=== PATIENT | male | born 1950 | race Caucasian/White ===

== ENCOUNTER 2019-04-18 13:08 | Inpatient (IN) | payer MEDICAID, OTHER ==
[2019-04-18 13:49] LABS: ADD MAN DIFF? NO
[2019-04-18] MEDS: CEFTRIAXONE 1 GM/50 ML (PMX) 50 ML IVPB (13:50)
[2019-04-18] MEDS: SODIUM CHLORIDE 0.9% 1L BAG IV* (13:50)
[2019-04-18] MEDS: ACETAMINOPHEN 325 MG TAB PO (13:50)
[2019-04-18 13:54] LABS: BASOPHILS % 0.3 % (0.0-2.0); HEMATOCRIT 42.4 % (42.0-52.0); HEMOGLOBIN 14.6 g/dl (14.0-18.0); LYMPHOCYTES # 0.6 10^3/ul (0.8-2.9); LYMPHOCYTES % 7.3 % (15.0-51.0); MEAN CORPUSCULAR HEMOGLOBIN 31.5 pg (29.0-33.0); MEAN CORPUSCULAR HGB CONC 34.4 g/dl (32.0-37.0); MEAN CORPUSCULAR VOLUME 91.6 fl (82.0-101.0); MEAN PLATELET VOLUME 10.1 fl (7.4-10.4); MONOCYTE # 0.9 10^3/ul (0.3-0.9); MONOCYTES % 9.7 % (0.0-11.0); NEUTROPHIL # 7.2 10^3/ul (1.6-7.5); PLATELET COUNT 151 10^3/UL (140-415); RED BLOOD COUNT 4.63 10^6/ul (4.70-6.10); RED CELL DISTRIBUTION WIDTH 12.8 % (11.5-14.5)
[2019-04-18 13:54] LABS: WHITE BLOOD COUNT 8.7 10^3/ul (4.8-10.8)
[2019-04-18 14:09] LABS: ADD UMIC YES; UR ASCORBIC ACID 40 mg/dL (NEGATIVE); UR BILIRUBIN (Dip) NEGATIVE (NEGATIVE); UR BLOOD (Dip) NEGATIVE (NEGATIVE); UR CLARITY CLOUDY (CLEAR); UR COLOR AMBER (YELLOW); UR GLUCOSE (Dip) NEGATIVE (NEGATIVE); UR KETONES (Dip) TRACE mg/dL (NEGATIVE); UR LEUKOCYTE ESTERASE (Dip) NEGATIVE Leu/ul (NEGATIVE); UR MUCUS MODERATE /HPF (NONE SEEN); UR NITRITE (Dip) NEGATIVE (NEGATIVE); UR RBC 28 /HPF (0-5); UR SPECIFIC GRAVITY (Dip) 1.028 (1.003-1.030); UR TOTAL PROTEIN (Dip) 2+ mg/dl (NEGATIVE); UR UROBILINOGEN (Dip) 1+ mg/dL (NEGATIVE); UR WBC 4 /HPF (0-5)
[2019-04-18 14:14] LABS: INR 0.98; PROTIME 13.1 Sec (11.9-14.9)
[2019-04-18 14:15] LABS: PARTIAL THROMBOPLASTIN TIME 30.6 Sec (23.0-35.0)
[2019-04-18 14:16] LABS: ALANINE AMINOTRANSFERASE 52 IU/L (13-69); ALBUMIN 4.2 g/dl (3.3-4.9); ALBUMIN/GLOBULIN RATIO 1.16; ALKALINE PHOSPHATASE 49 IU/L (42-121); ANION GAP 11 (5-13); ASPARTATE AMINO TRANSFERASE 69 IU/L (15-46); BLOOD UREA NITROGEN 22 mg/dl (7-20); CALCIUM 8.7 mg/dl (8.4-10.2); CARBON DIOXIDE 26 mmol/L (21-31); CHLORIDE 99 mmol/L (97-110); CREATININE 1.17 mg/dl (0.61-1.24); Estimated GFR > 60 mL/min (>60); GLUCOSE 155 mg/dl (70-220); POTASSIUM 3.8 mmol/L (3.5-5.1); SODIUM 136 mmol/L (135-144); TOTAL PROTEIN 7.8 g/dl (6.1-8.1)
[2019-04-18 14:27] LABS: TROPONIN-I < 0.012 ng/ml (0.000-0.120)
[2019-04-18] MEDS ORDERED: ONDANSETRON 4 MG INJ IV (16:00)
[2019-04-18 16:20] LABS: LACTIC ACID 1.4 mmol/L (0.5-2.0)
[2019-04-18] MEDS ORDERED: NACL 0.9% 3 ML SYG IV (17:00)
[2019-04-18 17:26] LABS: HEMOGLOBIN A1C 5.6 % (0-5.9)
[2019-04-18 17:27] LABS: C-REACTIVE PROTEIN 6.1 mg/dl (0.0-0.9)
[2019-04-18 17:33] LABS: B-TYPE NATRIURETIC PEPTIDE 35 PG/ML (0-125)
[2019-04-18 17:51] LABS: PROSTATE SPECIFIC ANTIGEN 3.1 ng/ml (0.0-4.0)
[2019-04-18 18:06] LABS: PROCALCITONIN 0.35 ng/mL (0.00-0.10)
[2019-04-18] MEDS: SOD CHLORIDE 0.9% 1,000 ML IV (18:06)
[2019-04-18] MEDS: AZITHROMYCIN 500MG/NS (PMX) 250 ML IVPB (18:06)
[2019-04-18 18:35] LABS: ERYTHROCYTE SEDIMENTATION RATE 60 mm/Hr (0-20)
[2019-04-18] MEDS: IBUPROFEN 600 MG TAB PO (19:07)
[2019-04-18 21:37] LABS: TROPONIN-I 0.018 ng/ml (0.000-0.120)
[2019-04-18 21:39] LABS: LACTIC ACID 0.9 mmol/L (0.5-2.0)
[2019-04-19] MEDS: ONDANSETRON 4 MG INJ IV (00:52)
[2019-04-19] MEDS: ACETAMINOPHEN 325 MG TAB PO (03:44)
[2019-04-19 05:51] LABS: ADD MAN DIFF? NO
[2019-04-19 05:57] LABS: WHITE BLOOD COUNT 7.3 10^3/ul (4.8-10.8)
[2019-04-19 05:57] LABS: ABNORMAL IP MESSAGE 1; BASOPHILS % 0.3 % (0.0-2.0); EOSINOPHILS % 0.1 % (0.0-7.0); HEMATOCRIT 36.9 % (42.0-52.0); HEMOGLOBIN 12.5 g/dl (14.0-18.0); LYMPHOCYTES # 0.4 10^3/ul (0.8-2.9); LYMPHOCYTES % 5.9 % (15.0-51.0); MEAN CORPUSCULAR HEMOGLOBIN 31.3 pg (29.0-33.0); MEAN CORPUSCULAR HGB CONC 33.9 g/dl (32.0-37.0); MEAN CORPUSCULAR VOLUME 92.5 fl (82.0-101.0); MEAN PLATELET VOLUME 10.2 fl (7.4-10.4); MONOCYTE # 0.4 10^3/ul (0.3-0.9); MONOCYTES % 5.7 % (0.0-11.0); NEUTROPHIL # 6.4 10^3/ul (1.6-7.5); PLATELET COUNT 124 10^3/UL (140-415); POSITIVE DIFF @See below; RED BLOOD COUNT 3.99 10^6/ul (4.70-6.10)
[2019-04-19 06:37] LABS: TROPONIN-I 0.029 ng/ml (0.000-0.120)
[2019-04-19 06:38] LABS: CK-MB 2.44 ng/ml (0.0-2.4)
[2019-04-19 06:44] LABS: ALANINE AMINOTRANSFERASE 48 IU/L (13-69); ALBUMIN 3.2 g/dl (3.3-4.9); ALKALINE PHOSPHATASE 42 IU/L (42-121); ANION GAP 8 (5-13); ASPARTATE AMINO TRANSFERASE 59 IU/L (15-46); BILIRUBIN,INDIRECT 0.7 mg/dl (0-1.1); BILIRUBIN,TOTAL 0.7 mg/dl (0.2-1.3); BLOOD UREA NITROGEN 20 mg/dl (7-20); CALCIUM 7.9 mg/dl (8.4-10.2); CARBON DIOXIDE 22 mmol/L (21-31); CHLORIDE 109 mmol/L (97-110); CREATININE 0.87 mg/dl (0.61-1.24); Estimated GFR > 60 mL/min (>60); GLUCOSE 124 mg/dl (70-220); SODIUM 139 mmol/L (135-144); TOTAL PROTEIN 6.4 g/dl (6.1-8.1)
[2019-04-19 06:45] LABS: CK INDEX 0.3; CREATINE KINASE 739 IU/L (23-200)
[2019-04-19 07:57] LABS: POTASSIUM 3.8 mmol/L (3.5-5.1)
[2019-04-19] MEDS: LOSARTAN 50 MG TAB PO (08:15)
[2019-04-19] MEDS: ENOXAPARIN 40 MG/0.4 ML SYG SC (08:19)
[2019-04-19 08:21] LABS: PHOSPHORUS 2.6 mg/dl (2.5-4.9)
[2019-04-19 08:21] LABS: CHOL/HDL RATIO 6.9 RATIO; CHOLESTEROL 145 mg/dl (100-200); HDL CHOLESTEROL 21 mg/dl (30-78); LDL CHOLESTEROL,CALCULATED 97 mg/dl; MAGNESIUM 2.4 mg/dl (1.7-2.5); TRIGLYCERIDES 136 mg/dl (0-149)
[2019-04-19 08:43] LABS: PROCALCITONIN 0.42 ng/mL (0.00-0.10)
[2019-04-19] MEDS: CEFTRIAXONE 1 GM/50 ML (PMX) 50 ML IVPB (13:27)
[2019-04-19] MEDS: IBUPROFEN 200 MG TAB PO ×2 (16:04→23:41)
[2019-04-19] MEDS ORDERED: LEVALBUTEROL (NEB) 1.25 MG/0.5 ML AMP HHN (16:30)
[2019-04-19 18:09] LABS: LACTIC ACID 1.6 mmol/L (0.5-2.0)
[2019-04-19] MEDS: AZITHROMYCIN 500MG/NS (PMX) 250 ML IVPB (18:13)
[2019-04-19 18:26] LABS: TROPONIN-I 0.019 ng/ml (0.000-0.120)
[2019-04-19] MEDS: LEVALBUTEROL (NEB) 1.25 MG/0.5 ML AMP HHN (20:14)
[2019-04-19] MEDS: IPRATROPIUM (NEB) 0.5 MG/2.5 ML AMP HHN (20:14)
[2019-04-20] MEDS: ONDANSETRON 4 MG INJ IV (02:54)
[2019-04-20 05:43] LABS: ADD MAN DIFF? NO
[2019-04-20 05:47] LABS: WHITE BLOOD COUNT 6.7 10^3/ul (4.8-10.8)
[2019-04-20 05:47] LABS: BASOPHILS % 0.3 % (0.0-2.0); EOSINOPHILS % 0.1 % (0.0-7.0); HEMATOCRIT 39.9 % (42.0-52.0); HEMOGLOBIN 13.6 g/dl (14.0-18.0); LYMPHOCYTES # 0.8 10^3/ul (0.8-2.9); LYMPHOCYTES % 11.3 % (15.0-51.0); MEAN CORPUSCULAR HEMOGLOBIN 31.2 pg (29.0-33.0); MEAN CORPUSCULAR HGB CONC 34.1 g/dl (32.0-37.0); MEAN CORPUSCULAR VOLUME 91.5 fl (82.0-101.0); MEAN PLATELET VOLUME 10.7 fl (7.4-10.4); MONOCYTE # 0.4 10^3/ul (0.3-0.9); MONOCYTES % 5.4 % (0.0-11.0); NEUTROPHIL # 5.5 10^3/ul (1.6-7.5); NEUTROPHILS % 81.7 % (39.0-77.0); PLATELET COUNT 138 10^3/UL (140-415); POSITIVE DIFF @See below; RED BLOOD COUNT 4.36 10^6/ul (4.70-6.10); RED CELL DISTRIBUTION WIDTH 12.9 % (11.5-14.5)
[2019-04-20 06:11] LABS: ANION GAP 8 (5-13); BLOOD UREA NITROGEN 14 mg/dl (7-20); CALCIUM 8.3 mg/dl (8.4-10.2); CARBON DIOXIDE 25 mmol/L (21-31); CHLORIDE 103 mmol/L (97-110); CREATININE 0.82 mg/dl (0.61-1.24); Estimated GFR > 60 mL/min (>60); GLUCOSE 120 mg/dl (70-220); POTASSIUM 3.9 mmol/L (3.5-5.1); SODIUM 136 mmol/L (135-144)
[2019-04-20] MEDS: IPRATROPIUM (NEB) 0.5 MG/2.5 ML AMP HHN ×4 (08:16→20:52)
[2019-04-20] MEDS: LEVALBUTEROL (NEB) 1.25 MG/0.5 ML AMP HHN ×4 (08:16→20:51)
[2019-04-20] MEDS: IBUPROFEN 200 MG TAB PO ×2 (08:33→16:12)
[2019-04-20] MEDS: LOSARTAN 50 MG TAB PO (08:34)
[2019-04-20] MEDS: ENOXAPARIN 40 MG/0.4 ML SYG SC (09:36)
[2019-04-20 16:00] LABS: HIV 1&2 ANTIBODY NEGATIVE (NEGATIVE)
[2019-04-20] MEDS: METHYLPREDNISOLONE 40 MG INJ IV ×2 (16:12→21:00)
[2019-04-20] MEDS: AZITHROMYCIN 500MG/NS (PMX) 250 ML IVPB (18:14)
[2019-04-20] MEDS: CEFEPIME 1GM/50 ML (PMX) 50 ML IVPB (21:00)
[2019-04-21] MEDS: METHYLPREDNISOLONE 40 MG INJ IV ×4 (00:40→17:18)
[2019-04-21] MEDS: CEFEPIME 1GM/50 ML (PMX) 50 ML IVPB ×2 (08:54→20:29)
[2019-04-21] MEDS: LOSARTAN 50 MG TAB PO (08:54)
[2019-04-21] MEDS: IPRATROPIUM (NEB) 0.5 MG/2.5 ML AMP HHN ×4 (09:00→19:45)
[2019-04-21] MEDS: LEVALBUTEROL (NEB) 1.25 MG/0.5 ML AMP HHN ×4 (09:00→19:45)
[2019-04-21] MEDS: ENOXAPARIN 40 MG/0.4 ML SYG SC (09:43)
[2019-04-21] MEDS: AZITHROMYCIN 500MG/NS (PMX) 250 ML IVPB (17:18)
[2019-04-22] MEDS: METHYLPREDNISOLONE 40 MG INJ IV ×4 (00:53→17:22)
[2019-04-22 05:46] LABS: ADD MAN DIFF? NO
[2019-04-22 05:50] LABS: ABNORMAL IP MESSAGE 1; BASOPHILS % 0.1 % (0.0-2.0); HEMATOCRIT 34.8 % (42.0-52.0); HEMOGLOBIN 11.8 g/dl (14.0-18.0); LYMPHOCYTES # 0.4 10^3/ul (0.8-2.9); LYMPHOCYTES % 5.4 % (15.0-51.0); MEAN CORPUSCULAR HEMOGLOBIN 31.1 pg (29.0-33.0); MEAN CORPUSCULAR HGB CONC 33.9 g/dl (32.0-37.0); MEAN CORPUSCULAR VOLUME 91.8 fl (82.0-101.0); MEAN PLATELET VOLUME 10.7 fl (7.4-10.4); MONOCYTE # 0.3 10^3/ul (0.3-0.9); NEUTROPHILS % 89.9 % (39.0-77.0); PLATELET COUNT 212 10^3/UL (140-415); POSITIVE DIFF @See below; RED BLOOD COUNT 3.79 10^6/ul (4.70-6.10)
[2019-04-22 05:50] LABS: WHITE BLOOD COUNT 7.8 10^3/ul (4.8-10.8)
[2019-04-22 06:31] LABS: ANION GAP 9 (5-13); BLOOD UREA NITROGEN 21 mg/dl (7-20); CALCIUM 8.5 mg/dl (8.4-10.2); CARBON DIOXIDE 24 mmol/L (21-31); CHLORIDE 105 mmol/L (97-110); CREATININE 0.81 mg/dl (0.61-1.24); Estimated GFR > 60 mL/min (>60); GLUCOSE 190 mg/dl (70-220); POTASSIUM 4.2 mmol/L (3.5-5.1); SODIUM 138 mmol/L (135-144)
[2019-04-22] MEDS: CEFEPIME 1GM/50 ML (PMX) 50 ML IVPB ×2 (08:54→20:43)
[2019-04-22] MEDS: LOSARTAN 50 MG TAB PO (08:54)
[2019-04-22] MEDS: IPRATROPIUM (NEB) 0.5 MG/2.5 ML AMP HHN ×4 (09:01→20:47)
[2019-04-22] MEDS: LEVALBUTEROL (NEB) 1.25 MG/0.5 ML AMP HHN ×4 (09:01→20:47)
[2019-04-22] MEDS: ENOXAPARIN 40 MG/0.4 ML SYG SC (09:08)
[2019-04-22] MEDS: AZITHROMYCIN 500MG/NS (PMX) 250 ML IVPB (17:22)
[2019-04-22] MEDS: MAGNESIUM HYDROXIDE 30ML CUP PO (21:26)
[2019-04-23] MEDS: METHYLPREDNISOLONE 40 MG INJ IV ×3 (00:37→11:11)
[2019-04-23] MEDS: MAGNESIUM HYDROXIDE 30ML CUP PO (01:34)
[2019-04-23 05:55] LABS: ADD MAN DIFF? NO
[2019-04-23 05:56] LABS: BASOPHILS % 0.3 % (0.0-2.0); HEMATOCRIT 33.9 % (42.0-52.0); HEMOGLOBIN 11.7 g/dl (14.0-18.0); LYMPHOCYTES # 0.6 10^3/ul (0.8-2.9); MEAN CORPUSCULAR HEMOGLOBIN 31.4 pg (29.0-33.0); MEAN CORPUSCULAR HGB CONC 34.5 g/dl (32.0-37.0); MEAN CORPUSCULAR VOLUME 90.9 fl (82.0-101.0); MEAN PLATELET VOLUME 10.4 fl (7.4-10.4); MONOCYTE # 0.6 10^3/ul (0.3-0.9); MONOCYTES % 7.1 % (0.0-11.0); NEUTROPHIL # 6.4 10^3/ul (1.6-7.5); PLATELET COUNT 238 10^3/UL (140-415); RED BLOOD COUNT 3.73 10^6/ul (4.70-6.10); RED CELL DISTRIBUTION WIDTH 13.2 % (11.5-14.5)
[2019-04-23 05:56] LABS: WHITE BLOOD COUNT 7.7 10^3/ul (4.8-10.8)
[2019-04-23 06:20] LABS: ANION GAP 9 (5-13); BLOOD UREA NITROGEN 22 mg/dl (7-20); CALCIUM 8.6 mg/dl (8.4-10.2); CARBON DIOXIDE 27 mmol/L (21-31); CHLORIDE 103 mmol/L (97-110); CREATININE 0.79 mg/dl (0.61-1.24); Estimated GFR > 60 mL/min (>60); GLUCOSE 164 mg/dl (70-220); POTASSIUM 4.5 mmol/L (3.5-5.1); SODIUM 139 mmol/L (135-144)
[2019-04-23] MEDS: LOSARTAN 50 MG TAB PO (08:23)
[2019-04-23] MEDS: CEFEPIME 1GM/50 ML (PMX) 50 ML IVPB (08:23)
[2019-04-23] MEDS: ENOXAPARIN 40 MG/0.4 ML SYG SC (08:29)
[2019-04-23] MEDS: LEVALBUTEROL (NEB) 1.25 MG/0.5 ML AMP HHN ×2 (08:59→12:53)
[2019-04-23] MEDS: IPRATROPIUM (NEB) 0.5 MG/2.5 ML AMP HHN ×2 (08:59→12:53)
[2019-04-23] MEDS: DOXYCYCLINE 100 MG TAB PO (11:11)
[2019-04-23] MEDS: LEVOFLOXACIN 750 MG TABLET NGT (11:11)
[2019-04-23 11:58] LABS: NIL 1.68 IU/mL; QUANTIFERON(R)-TB GOLD NEGATIVE (NEGATIVE); TB-NIL 0.24 IU/mL; TB2-NIL 0.34 IU/mL
== END 2019-04-23 16:01 | disposition home or self-care (01) | DRG 871 ==
LOC: E/R 13:08 → 6WM 15:53
DX: A41.9 Sepsis, unspecified organism (principal); J18.1 Lobar pneumonia, unspecified organism; J96.90 Respiratory failure, unspecified, unspecified whether with hypoxia or hypercapnia; N39.0 Urinary tract infection, site not specified; E66.9 Obesity, unspecified; Z68.31 Body mass index [BMI] 31.0-31.9, adult; I10 Essential (primary) hypertension; J43.2 Centrilobular emphysema; B96.20 Unspecified Escherichia coli [E. coli] as the cause of diseases classified elsewhere
CPT/HCPCS: 36415; 71045; 71250; 74176; 80048; 80053; 80061; 81001; 82550; 82553; 82962; 83036; 83605; 83735; 83880; 84100; 84145; 84153; 84154; 84484; 85025; 85610; 85651; 85730; 86140; 86480; 86606; 86635; 86703; 87040-91; 87070; 87081; 87086; 87449; 93005; 94640; 94664; 94667; 94668; 96374; 99285-25